=== PATIENT | male | born 1985 | race Caucasian/White ===

== ENCOUNTER 2018-08-02 07:53 | Emergency (ER) | payer MEDICARE ==
[~2018-08-02] VITALS: Ht 200.7 cm; Wt 158.8 kg
[~2018-08-02 07:53] MED LIST: ALBU90I INH; CEPH500 PO; CYCL10 PO; DULO60 PO; Flomax0.4 MG PO; IBUP600 PO; INVEGA PO; Norco 5-325 Ta1 EACH PO; OXYACE5T PO; PRED20 PO; PROCODE120 PO; PROM25 PO; Ultram50 MG PO
[2018-08-02] MEDS ORDERED: PALI3TAB (08:09)
== END 2018-08-02 09:32 | disposition home or self-care (01) ==
LOC: ER 07:53
DX: M10.9 Gout, unspecified (principal); Z79.899 Other long term (current) drug therapy; F20.9 Schizophrenia, unspecified
CPT/HCPCS: 73630; 84550; 85651; 99283-25

== ENCOUNTER 2018-10-06 11:57 | Emergency (ER) | payer MEDICARE ==
[~2018-10-06] VITALS: Ht 200.7 cm; Wt 158.8 kg
[~2018-10-06 11:57] MED LIST changes: +PALI3TAB
[2018-10-06] MEDS ORDERED: Prednisone20 MG PO (12:46)
[2018-10-06] MEDS ORDERED: Naprosyn500 MG PO (12:46)
== END 2018-10-06 12:50 | disposition home or self-care (01) ==
LOC: ER 11:57
DX: M10.9 Gout, unspecified (principal); R03.0 Elevated blood-pressure reading, without diagnosis of hypertension
CPT/HCPCS: 99283

== ENCOUNTER 2019-06-03 13:42 | Emergency (ER) | payer MEDICARE ==
[~2019-06-03] VITALS: Ht 200.7 cm; Wt 172.4 kg
[~2019-06-03 13:42] MED LIST changes: +Naprosyn500 MG PO; +Prednisone20 MG PO
== END 2019-06-03 14:41 | disposition home or self-care (01) ==
LOC: ER 13:42
DX: J06.9 Acute upper respiratory infection, unspecified (principal); F20.9 Schizophrenia, unspecified; Z79.899 Other long term (current) drug therapy
CPT/HCPCS: 99282

== ENCOUNTER 2024-04-02 05:16 | Emergency (ER) | payer MEDICARE ==
[~2024-04-02] VITALS: Ht 200.7 cm; Wt 181.4 kg
[2024-04-02 05:26] VITALS: BP 148/101
[2024-04-02] MEDS ORDERED: LISI20 PO (05:29)
[2024-04-02] MEDS ORDERED: PALIPERIDONE ER6 MG PO (05:29)
[2024-04-02] MEDS ORDERED: ATORVASTATIN CA20 MG PO (05:29)
[2024-04-02] MEDS ORDERED: FEBUXOSTAT80 MG PO (05:29)
[2024-04-02] MEDS ORDERED: Cyclobenzaprine HCl 10 MG Tab PO ONE (06:00)
[2024-04-02] MEDS ORDERED: Dexamethasone Sod Phos 10 MG/ML 1ML VIAL PO ONE (06:00)
[2024-04-02] MEDS ORDERED: HYDROcodone 5-APAP 325 TAB PO ONE (06:00)
[2024-04-02] MEDS ORDERED: CYCL10 PO (06:49)
[2024-04-02] MEDS ORDERED: LIDO700A20 TOP (06:49)
[2024-04-02] MEDS ORDERED: HYDR1TAB94 PO (06:53)
== END 2024-04-02 07:11 | disposition home or self-care (01) ==
LOC: ER 05:16
DX: M54.16 Radiculopathy, lumbar region (principal); Z79.899 Other long term (current) drug therapy; M10.9 Gout, unspecified
CPT/HCPCS: 99283; A9270; J1100